=== PATIENT | male | born 1940 | race Caucasian/White ===

== ENCOUNTER 2019-08-11 09:41 | Emergency (ER) | payer MEDICARE, OTHER, BC ==
[~2019-08-11] VITALS: Ht 175.3 cm; Wt 91.0 kg
[~2019-08-11 09:41] MED LIST: CHOL2000 PO; EZET10TA21 PO; LISI-600 PO; PRAV40TA3 PO
[2019-08-11 10:47] LABS: CLARITY,URINE TURBID (Clear); COLOR,URINE STRAW (Yellow); GLUCOSE, URINE NEGATIVE (Neg); KETONES,URINE NEGATIVE (Neg); LEUKOCYTE ESTERASE ,URINE LARGE (Neg); NITRITES, URINE NEGATIVE (Neg); OCCULT BLOOD,URINE LARGE (Neg); PROTEIN,URINE 30 mg/dl (Neg); UROBILINOGEN,URINE 0.2 E.U/dL (0.2-1.0)
[2019-08-11 10:50] LABS: UA COLLECTION TYPE CLN CATCH MIDSTREAM
[2019-08-11 10:54] LABS: AMORPHOUS PHOSPHATES 2+; SQUAMOUS EPITHELIAL CELL,UR FEW /LPF (FEW); WBC CLUMPS,URINE FEW /HPF (NEGATIVE); WBC,URINE TNTC /HPF (0-4)
[2019-08-11 10:55] LABS: BACTERIA,URINE 4+ /HPF (Neg); MUCUS STRANDS FEW /LPF (Neg); RBC,URINE 20-50 /HPF (0-2)
[2019-08-11 10:57] LABS: TRANSITIONAL EPI CELLS,URINE FEW /HPF
[2019-08-11] MEDS ORDERED: DOXY100C43 PO (11:55)
[2019-08-11 12:43] VITALS: BP 129/67
[2019-08-11] MEDS ORDERED: GABA-532 PO (17:11)
[2019-08-11] MEDS ORDERED: GABA-534 PO (17:11)
[2019-08-11] MEDS ORDERED: UBID100C16 PO (17:11)
[2019-08-11] MEDS ORDERED: BUDE90AE PO (17:48)
[2019-08-11] MEDS ORDERED: LISI40TA4 PO (17:48)
== END 2019-08-11 12:51 | disposition home or self-care (01) ==
LOC: ER 09:42
DX: N39.0 Urinary tract infection, site not specified (principal); R33.9 Retention of urine, unspecified; Z79.899 Other long term (current) drug therapy
CPT/HCPCS: 81001; 87077; 87088; 87186; 99284

== ENCOUNTER 2019-08-11 14:37 | Inpatient (IN) | payer MEDICARE, BC ==
[~2019-08-11] VITALS: Ht 176.5 cm; Wt 88.6 kg
[~2019-08-11 14:37] MED LIST changes: +DOXY100C43 PO
[2019-08-11] MEDS ORDERED: morphine 4 MG/ML inj SYRINge IV ONE (14:55)
[2019-08-11] MEDS ORDERED: LIDOcaine 2% 10ml TOPICAL JELLY (Urojet) MM ONE ×2 (14:55→16:50)
--- NOTE | 2019-08-11 15:34 | NUR ---
Continuous bladder irrigation is happening at this time. Pt's urine noted to have a few small clots with the start of the placement of the three way cath and with the first few minutes of the irrigation but the clots are fewer at this time.
[2019-08-11 16:20] LABS: BASOPHILS % (AUTO) 0.4 % (0-1); EOSINOPHILS # (AUTO) 0.1 X10'3 (0-0.9); EOSINOPHILS % (AUTO) 0.5 % (0-6); HEMATOCRIT 42.1 % (42.0-52.0); HEMOGLOBIN 14.4 g/dl (14.0-17.9); LYMPHOCYTES # (AUTO) 1.1 X10'3 (1.1-4.8); LYMPHOCYTES % (AUTO) 9.1 % (21-51); MEAN CORPUSCULAR HGB CONC 34.2 g/dL (33.0-36.5); MEAN CORPUSCULAR VOLUME 90.6 FL (78-98); MEAN PLATELET VOLUME 8.5 FL (7.4-10.4); MONOCYTES # (AUTO) 0.7 X10'3 (0-0.9); MONOCYTES % (AUTO) 5.8 % (2-12); NEUTROPHILS # (AUTO) 9.9 X10'3 (1.8-7.7); NEUTROPHILS % (AUTO) 84.2 % (42-75); PLATELET COUNT 189 X10'3 (140-440); RED BLOOD COUNT 4.65 X10'6 (4.70-6.10); RED CELL DISTRIBUTION WIDTH 13.1 % (11.5-14.5); WHITE BLOOD COUNT 11.8 X10'3 (4.5-11.0)
[2019-08-11 16:28] LABS: ALANINE AMINOTRANSFERASE 26 U/L (12-78); ALBUMIN 3.9 G/DL (3.4-5.0); ALBUMIN/GLOBULIN RATIO 1.1 (1.1-1.5); ALKALINE PHOSPHATASE 69 IU/L (46-116); ANION GAP 7 (8-16); ASPARTATE AMINO TRANSFERASE 12 U/L (10-37); BILIRUBIN,TOTAL 0.8 MG/DL (0.1-1.0); BLOOD UREA NITROGEN 36 MG/DL (7-18); BUN/CREATININE RATIO 20.6 (5.4-32.0); CALCIUM 9.1 MG/DL (8.5-10.1); CHLORIDE 102 MMOL/L (99-107); CREATININE 1.75 MG/DL (0.60-1.10); GLUCOSE 117 MG/DL (70-104); POTASSIUM 4.3 MMOL/L (3.5-5.1); SODIUM 137 MMOL/L (135-145); TOTAL CARBON DIOXIDE 28.1 MMOL/L (24-32); TOTAL PROTEIN 7.4 G/DL (6.4-8.2); eGFR 38 ML/MIN
[2019-08-11] MEDS ORDERED: ondansetron/PF 4mg/2ml inj IV ONE (16:50)
[2019-08-11] MEDS ORDERED: morphine 4 MG/ML inj SYRINge IV PRN (16:50)
--- NOTE | 2019-08-11 16:57 | NUR ---
6000 ML NS INSTILLED INTO BLADDER FOR IRRIGATION TOTAL. 2L NS HUNG TO CONTINUE IRRIGATION. RED COLLECTION BAG EMPTIED OF 1600ML [place] RED FLUID WITH NOTED CLOTS. DR MONSIVAIS AT BED SIDE, NEW ORDERS RECEIVED
[2019-08-11] MEDS ORDERED: GABA-532 PO (17:11)
[2019-08-11] MEDS ORDERED: GABA-534 PO (17:11)
[2019-08-11] MEDS ORDERED: UBID100C16 PO (17:11)
[2019-08-11] MEDS ORDERED: ondansetron/PF 4mg/2ml inj IV PRN (17:45)
[2019-08-11] MEDS ORDERED: mag hydrox/Alum hydrox/simeth 30ml oral suspension PO PRN (17:45)
[2019-08-11] MEDS ORDERED: magnesium hydroxide 30ml (MOM) UD suspension PO PRN (17:45)
[2019-08-11] MEDS ORDERED: acetaminophen 325mg tablet PO PRN (17:45)
[2019-08-11] MEDS ORDERED: LISI40TA4 PO (17:48)
[2019-08-11] MEDS ORDERED: BUDE90AE PO (17:48)
[2019-08-11] MEDS: normal saline 1000ml 1,000 ML IV SCH (18:28)
[2019-08-11] MEDS: CefTRIAXone/D5W-Rocephin 1gm 50 ML IV SCH (18:32)
--- NOTE | 2019-08-11 18:41 | NUR ---
Pt reports pain is a steady 6/10 but instensifies in waves and increases higher. Pt has been medicated for pain, additional pain medication is pending.
[2019-08-11] MEDS ORDERED: CefTRIAXone 2gm/D5W 50ml 50 ML IV ONE (18:50)
--- NOTE | 2019-08-11 19:08 | NUR ---
Medicated as ordered with morphine 4mg IV. Pt reports the previous morphine dose did not help and he is "getting angry with sitting here in so much pain!" Explained the process of pain management and medication regimen to the patient.
--- NOTE | 2019-08-11 19:42 | NUR ---
Continuous bladder irrigation still running, some periods of light blood tinged return from the cath followed by some episodes of bright red blood and clots noted. Pt reports pain persists despite a second dose of morphine IV. Pt reported frustration over not being given a meal so far. blade worker is attempting to locate a box lunch for the patient at this time.
[2019-08-11] MEDS ORDERED: non-formulary drug (Ubidecarenone (Coq-10) 100 MG) PO SCH (20:00)
[2019-08-11] MEDS: budesonide 0.5mg/2ml UD nebule IH SCH (20:00)
[2019-08-11] MEDS ORDERED: gabapentin 400mg capsule PO SCH (20:00)
--- NOTE | 2019-08-11 20:17 | NUR ---
Received report from janitorial maintenance workerWALLACE Simmons. Patient to follow shortly.
--- NOTE | 2019-08-11 20:30 | NUR ---
Patient arrived to floor from the ER via gurney. Patient alert and oriented and managed to transfer himself over from gurney to bed. VS taken and f/c emptied and new bag of NS for irrigation hung.
[2019-08-11 20:45] VITALS: BP 134/75
[2019-08-11] MEDS: HYDROmorphone 1 mg/ml syringe IV PRN (21:46)
[2019-08-11] MEDS ORDERED: pravastatin 40mg tablet PO ONE (21:50)
[2019-08-11] MEDS ORDERED: ezetimibe 10mg tablet PO ONE (21:50)
[2019-08-11] MEDS ORDERED: lisinopril 20mg tablet PO ONE (21:50)
[2019-08-11] MEDS: gabapentin 300mg capsule PO SCH (22:09)
[2019-08-11 22:10] VITALS: BP 120/62
[2019-08-12] VITALS: BP 116/56
[2019-08-12] MEDS: temazepam 15mg capsule PO PRN ×2 (00:03→21:14)
[2019-08-12] MEDS: normal saline 1000ml 1,000 ML IV SCH ×4 (03:45→22:49)
[2019-08-12] MEDS: HYDROmorphone 1 mg/ml syringe IV PRN ×3 (04:17→20:56)
[2019-08-12 04:59] LABS: EOSINOPHILS # (AUTO) 0.2 X10'3 (0-0.9); HEMOGLOBIN 13.9 g/dl (14.0-17.9); MEAN CORPUSCULAR HGB CONC 34.2 g/dL (33.0-36.5)
[2019-08-12 05:02] LABS: BASOPHILS # (AUTO) 0.1 X10'3 (0-0.2); BASOPHILS % (AUTO) 0.4 % (0-1); EOSINOPHILS % (AUTO) 1.8 % (0-6); HEMATOCRIT 40.7 % (42.0-52.0); LYMPHOCYTES # (AUTO) 1.4 X10'3 (1.1-4.8); LYMPHOCYTES % (AUTO) 11.8 % (21-51); MEAN CORPUSCULAR HEMOGLOBIN 30.8 PG (27.0-31.0); MEAN CORPUSCULAR VOLUME 90.2 FL (78-98); MEAN PLATELET VOLUME 8.7 FL (7.4-10.4); MONOCYTES % (AUTO) 8.1 % (2-12); NEUTROPHILS # (AUTO) 9.3 X10'3 (1.8-7.7); NEUTROPHILS % (AUTO) 77.9 % (42-75); PLATELET COUNT 184 X10'3 (140-440); RED BLOOD COUNT 4.51 X10'6 (4.70-6.10); RED CELL DISTRIBUTION WIDTH 12.7 % (11.5-14.5); WHITE BLOOD COUNT 11.9 X10'3 (4.5-11.0)
[2019-08-12 05:04] LABS: ALBUMIN 3.1 G/DL (3.4-5.0); ANION GAP 4 (8-16); BLOOD UREA NITROGEN 33 MG/DL (7-18); BUN/CREATININE RATIO 24.4 (5.4-32.0); CALCIUM 8.6 MG/DL (8.5-10.1); CHLORIDE 103 MMOL/L (99-107); CREATININE 1.35 MG/DL (0.60-1.10); GLUCOSE 115 MG/DL (70-104); POTASSIUM 4.3 MMOL/L (3.5-5.1); SODIUM 135 MMOL/L (135-145); TOTAL CARBON DIOXIDE 27.7 MMOL/L (24-32); eGFR 51 ML/MIN
--- NOTE | 2019-08-12 06:02 | NUR ---
Total irrigation fluid since 2139 =18,000 cc. Total f/c output =16,750cc. UO =1250cc.
[2019-08-12 06:30] VITALS: BP 103/54
--- NOTE | 2019-08-12 06:30 | NUR ---
Patient in room [facility]. I have received report from WALLACE Ugalde and had the opportunity to ask questions and assume patient care.
--- NOTE | 2019-08-12 06:48 | NUR ---
Problems reprioritized. Patient report given, questions answered & plan of care reviewed with Kayli Rn.
[2019-08-12] MEDS ORDERED: pravastatin 40mg tablet PO SCH (08:00)
[2019-08-12] MEDS ORDERED: lisinopril 20mg tablet PO SCH (08:00)
[2019-08-12] MEDS: budesonide 0.5mg/2ml UD nebule IH SCH ×2 (08:00→20:00)
[2019-08-12] MEDS ORDERED: ezetimibe 10mg tablet PO SCH (08:00)
[2019-08-12] MEDS: gabapentin 400mg capsule PO SCH ×2 (08:41→12:14)
[2019-08-12] MEDS: CefTRIAXone/D5W-Rocephin 1gm 50 ML IV SCH (08:41)
[2019-08-12] MEDS: vitamin D (cholecalciferol) 1,000 unit tablet PO SCH (08:42)
--- NOTE | 2019-08-12 09:12 | NUR ---
Patient refused SVN tx @ this time. No Shortness of breath noted. PT STATES HE RARELY USES AT HOME MED NOT AVAILABLE IN [facility]ER [facility] Addendum: 08/12/19 at 0914 by Shelley Rivas RT Amended: Links added.
[2019-08-12 11:00] VITALS: BP 102/66
[2019-08-12] MEDS: oxybutynin 5mg tablet PO SCH ×2 (12:14→20:56)
--- NOTE | 2019-08-12 18:10 | NUR ---
Problems reprioritized. Patient report given, questions answered & plan of care reviewed with Aracelis Hsu RN.
--- NOTE | 2019-08-12 18:30 | NUR ---
Patient in room [facility]. I have received report from KALIN GONSALEZ and had the opportunity to ask questions and assume patient care.
--- NOTE | 2019-08-12 19:25 | NUR ---
Patient report given, questions answered & plan of care reviewed with LORENZO GONSALEZ.
[2019-08-12 19:32] VITALS: BP 136/65
--- NOTE | 2019-08-12 19:37 | NUR ---
Patient in room [facility]. I have received report from Aracelis Hsu RN and had the opportunity to ask questions and assume patient care.
[2019-08-12] MEDS: lactobacillus rhamnosus 10,000 MMU CELLS/CAPSULE PO SCH (20:56)
[2019-08-12] MEDS: gabapentin 300mg capsule PO SCH (20:56)
[2019-08-13] VITALS: BP 142/66
[2019-08-13 05:01] LABS: BASOPHILS % (AUTO) 0.5 % (0-1); EOSINOPHILS # (AUTO) 0.5 X10'3 (0-0.9); HEMATOCRIT 40.2 % (42.0-52.0); HEMOGLOBIN 14.1 g/dl (14.0-17.9); LYMPHOCYTES # (AUTO) 1.2 X10'3 (1.1-4.8); MEAN CORPUSCULAR HEMOGLOBIN 31.2 PG (27.0-31.0); MEAN CORPUSCULAR HGB CONC 35.1 g/dL (33.0-36.5); MEAN CORPUSCULAR VOLUME 88.9 FL (78-98); MEAN PLATELET VOLUME 8.3 FL (7.4-10.4); MONOCYTES # (AUTO) 0.9 X10'3 (0-0.9); MONOCYTES % (AUTO) 8.9 % (2-12); NEUTROPHILS # (AUTO) 7.6 X10'3 (1.8-7.7); NEUTROPHILS % (AUTO) 73.6 % (42-75); PLATELET COUNT 180 X10'3 (140-440); RED BLOOD COUNT 4.52 X10'6 (4.70-6.10); WHITE BLOOD COUNT 10.3 X10'3 (4.5-11.0)
[2019-08-13 05:08] LABS: ANION GAP 6 (8-16); BLOOD UREA NITROGEN 21 MG/DL (7-18); BUN/CREATININE RATIO 17.9 (5.4-32.0); CALCIUM 8.5 MG/DL (8.5-10.1); CHLORIDE 103 MMOL/L (99-107); CREATININE 1.17 MG/DL (0.60-1.10); GLUCOSE 117 MG/DL (70-104); POTASSIUM 4.3 MMOL/L (3.5-5.1); SODIUM 136 MMOL/L (135-145); TOTAL CARBON DIOXIDE 27.3 MMOL/L (24-32); eGFR 60 ML/MIN
--- NOTE | 2019-08-13 06:30 | NUR ---
Problems reprioritized. Patient report given, questions answered & plan of care reviewed with Mala GONSALEZ.
--- NOTE | 2019-08-13 06:47 | NUR ---
Patient in room [facility]. I have received report from WALLACE Ugalde and had the opportunity to ask questions and assume patient care.
[2019-08-13 07:00] VITALS: BP 139/70
[2019-08-13] MEDS: oxybutynin 5mg tablet PO SCH ×3 (08:46→20:44)
[2019-08-13] MEDS: CefTRIAXone/D5W-Rocephin 1gm 50 ML IV SCH (08:46)
[2019-08-13] MEDS: vitamin D (cholecalciferol) 1,000 unit tablet PO SCH (08:46)
[2019-08-13] MEDS: lactobacillus rhamnosus 10,000 MMU CELLS/CAPSULE PO SCH ×2 (08:46→20:45)
[2019-08-13] MEDS: gabapentin 400mg capsule PO SCH ×2 (08:46→11:13)
--- NOTE | 2019-08-13 09:06 | NUR ---
Patient refusing to take pravastatin, ezetimibe, and lisinopril during the AM because at home he takes them at night. Pharmacy asked to retime these.
--- NOTE | 2019-08-13 10:24 | NUR ---
patient refused svn tx Addendum: 08/13/19 at 1025 by Anabella Prsesley RT Amended: Links added.
[2019-08-13] MEDS: budesonide 0.5mg/2ml UD nebule IH SCH ×2 (10:25→19:22)
[2019-08-13 11:00] VITALS: BP 131/68
--- NOTE | 2019-08-13 11:32 | NUR ---
Patient to CT via wheelchair and x1 RN. Resource RN went with patient to monitor CBI.
[2019-08-13] MEDS: normal saline 1000ml 1,000 ML IV SCH (13:27)
--- NOTE | 2019-08-13 16:30 | NUR ---
Patient in room [facility]. I have received report from MAUREEN GONSALEZ and had the opportunity to ask questions and assume patient care. Addendum: 08/14/19 at 0359 by Clara Souza RN WRONG TIME.
--- NOTE | 2019-08-13 18:23 | NUR ---
Problems reprioritized. Patient report given, questions answered & plan of care reviewed with Aracelis Hsu RN.
--- NOTE | 2019-08-13 18:30 | NUR ---
Patient in room [facility]. I have received report from MAUREEN GONSALEZ and had the opportunity to ask questions and assume patient care.
[2019-08-13 20:00] VITALS: BP 109/73
[2019-08-13] MEDS: gabapentin 300mg capsule PO SCH (20:42)
[2019-08-13] MEDS: temazepam 15mg capsule PO PRN (20:42)
[2019-08-13] MEDS: pravastatin 40mg tablet PO SCH (20:42)
[2019-08-13] MEDS: ezetimibe 10mg tablet PO SCH (20:45)
[2019-08-13] MEDS: HYDROmorphone 1 mg/ml syringe IV PRN (20:46)
[2019-08-13] MEDS ORDERED: lisinopril 20mg tablet PO SCH (21:00)
[2019-08-14] VITALS: BP 110/70
[2019-08-14] MEDS: normal saline 1000ml 1,000 ML IV SCH ×2 (00:39→10:17)
[2019-08-14 05:15] LABS: BASOPHILS % (AUTO) 0.2 % (0-1); EOSINOPHILS # (AUTO) 0.1 X10'3 (0-0.9); EOSINOPHILS % (AUTO) 1.1 % (0-6); HEMATOCRIT 43.7 % (42.0-52.0); HEMOGLOBIN 15.1 g/dl (14.0-17.9); LYMPHOCYTES # (AUTO) 1.1 X10'3 (1.1-4.8); LYMPHOCYTES % (AUTO) 10.4 % (21-51); MEAN CORPUSCULAR HEMOGLOBIN 30.8 PG (27.0-31.0); MEAN CORPUSCULAR HGB CONC 34.7 g/dL (33.0-36.5); MEAN PLATELET VOLUME 8.7 FL (7.4-10.4); MONOCYTES # (AUTO) 0.8 X10'3 (0-0.9); MONOCYTES % (AUTO) 7.9 % (2-12); NEUTROPHILS # (AUTO) 8.2 X10'3 (1.8-7.7); NEUTROPHILS % (AUTO) 80.4 % (42-75); PLATELET COUNT 213 X10'3 (140-440); RED CELL DISTRIBUTION WIDTH 12.7 % (11.5-14.5); WHITE BLOOD COUNT 10.2 X10'3 (4.5-11.0)
[2019-08-14 05:30] LABS: ALBUMIN 2.8 G/DL (3.4-5.0); ANION GAP 8 (8-16); BLOOD UREA NITROGEN 19 MG/DL (7-18); BUN/CREATININE RATIO 16.4 (5.4-32.0); CALCIUM 8.4 MG/DL (8.5-10.1); CHLORIDE 102 MMOL/L (99-107); CREATININE 1.16 MG/DL (0.60-1.10); GLUCOSE 121 MG/DL (70-104); POTASSIUM 4.1 MMOL/L (3.5-5.1); SODIUM 134 MMOL/L (135-145); eGFR 61 ML/MIN
--- NOTE | 2019-08-14 06:31 | NUR ---
Problems reprioritized. Patient report given, questions answered & plan of care reviewed with MAUREEN GONSALEZ.
--- NOTE | 2019-08-14 06:34 | NUR ---
Patient in room [facility]. I have received report from Aracelis Hsu RN and had the opportunity to ask questions and assume patient care.
[2019-08-14 07:00] VITALS: BP 100/55
[2019-08-14] MEDS: budesonide 0.5mg/2ml UD nebule IH SCH ×2 (07:18→19:42)
--- NOTE | 2019-08-14 07:19 | NUR ---
PT HAS BEEN REFUSING BUDESONIDE, NEEDS EDUCATION. MED IS NOT AVAILABLE IN [facility]WAY Addendum: 08/14/19 at 0721 by Shelley Rivas RT Amended: Links added.
--- NOTE | 2019-08-14 07:21 | NUR ---
CALLED SULMA GONSALEZ ON THE SURGICAL FLOOR. ASKED HIM TO HAVE THE DRBrendan TAKE A LOOK AT THE URINE CULTURE AND SENSITIVITY TO MAKE SURE HE IS ON THE RIGHT ANTIBIOTIC
[2019-08-14] MEDS: lactobacillus rhamnosus 10,000 MMU CELLS/CAPSULE PO SCH ×2 (07:47→20:31)
[2019-08-14] MEDS: oxybutynin 5mg tablet PO SCH ×3 (07:47→20:31)
[2019-08-14] MEDS: CefTRIAXone/D5W-Rocephin 1gm 50 ML IV SCH (07:47)
[2019-08-14] MEDS: vitamin D (cholecalciferol) 1,000 unit tablet PO SCH (07:47)
[2019-08-14] MEDS: gabapentin 400mg capsule PO SCH ×2 (07:47→12:32)
--- NOTE | 2019-08-14 08:30 | NUR ---
Upon assessment of this patient he was found to have hives on posterior bilateral lower extremities. Rocephin was immediately stopped and was notified. Received Benadryl order for patient. Will continue to monitor patient.
[2019-08-14] MEDS: diphenhydrAMINE 50 mg/ml inj IV PRN ×2 (10:50→19:24)
[2019-08-14 11:00] VITALS: BP_SYST 93; BP_SYST 94; BP_DIAS 41; BP_DIAS 50; BP_DIAS 52
[2019-08-14 12:24] VITALS: BP 104/54
[2019-08-14 18:00] VITALS: BP 112/55
--- NOTE | 2019-08-14 18:32 | NUR ---
Problems reprioritized. Patient report given, questions answered & plan of care reviewed with WALLACE Singh.
[2019-08-14] MEDS: gabapentin 300mg capsule PO SCH (20:31)
[2019-08-14] MEDS: ezetimibe 10mg tablet PO SCH (20:31)
[2019-08-14] MEDS: pravastatin 40mg tablet PO SCH (20:32)
[2019-08-15] VITALS: BP 98/47
[2019-08-15] MEDS: normal saline 1000ml 1,000 ML IV SCH ×2 (01:45→08:28)
[2019-08-15 05:26] LABS: BASOPHILS % (AUTO) 0.1 % (0-1); EOSINOPHILS # (AUTO) 0.1 X10'3 (0-0.9); EOSINOPHILS % (AUTO) 1.5 % (0-6); HEMATOCRIT 39.8 % (42.0-52.0); HEMOGLOBIN 13.8 g/dl (14.0-17.9); MEAN CORPUSCULAR HEMOGLOBIN 30.6 PG (27.0-31.0); MEAN CORPUSCULAR HGB CONC 34.6 g/dL (33.0-36.5); MEAN CORPUSCULAR VOLUME 88.5 FL (78-98); MEAN PLATELET VOLUME 8.6 FL (7.4-10.4); MONOCYTES # (AUTO) 0.4 X10'3 (0-0.9); MONOCYTES % (AUTO) 6.2 % (2-12); NEUTROPHILS # (AUTO) 5.6 X10'3 (1.8-7.7); NEUTROPHILS % (AUTO) 78.2 % (42-75); PLATELET COUNT 179 X10'3 (140-440); RED CELL DISTRIBUTION WIDTH 12.8 % (11.5-14.5); WHITE BLOOD COUNT 7.2 X10'3 (4.5-11.0)
[2019-08-15 05:36] LABS: ALBUMIN 2.5 G/DL (3.4-5.0); ANION GAP 7 (8-16); BLOOD UREA NITROGEN 29 MG/DL (7-18); BUN/CREATININE RATIO 20.1 (5.4-32.0); CALCIUM 7.7 MG/DL (8.5-10.1); CHLORIDE 102 MMOL/L (99-107); CREATININE 1.44 MG/DL (0.60-1.10); GLUCOSE 109 MG/DL (70-104); POTASSIUM 4.2 MMOL/L (3.5-5.1); SODIUM 133 MMOL/L (135-145); TOTAL CARBON DIOXIDE 24.2 MMOL/L (24-32); eGFR 48 ML/MIN
--- NOTE | 2019-08-15 06:38 | NUR ---
Report given to WALLACE Perales
--- NOTE | 2019-08-15 06:38 | NUR ---
Patient in room [facility]. I have received report from Francisco GONSALEZ and had the opportunity to ask questions and assume patient care.
[2019-08-15] MEDS: budesonide 0.5mg/2ml UD nebule IH SCH (08:00)
--- NOTE | 2019-08-15 08:17 | NUR ---
budesonide not available Addendum: 08/15/19 at 0817 by Shelley Rivas RT Amended: Links added.
[2019-08-15] MEDS: lactobacillus rhamnosus 10,000 MMU CELLS/CAPSULE PO SCH (08:19)
[2019-08-15] MEDS: vitamin D (cholecalciferol) 1,000 unit tablet PO SCH (08:19)
[2019-08-15] MEDS: gabapentin 400mg capsule PO SCH (08:19)
[2019-08-15] MEDS: oxybutynin 5mg tablet PO SCH (08:20)
[2019-08-15] MEDS: diphenhydrAMINE 50 mg/ml inj IV PRN (08:25)
[2019-08-15 09:07] VITALS: BP 105/50
[2019-08-15] MEDS ORDERED: OXYB5TAB16 PO (10:27)
--- NOTE | 2019-08-15 12:18 | NUR ---
Patient D/C'd home per Dr Crawford. Patient alert and oriented x3. on stable conditions. Discharge and medication instructions given to pat. Pt left hospital with Lee cath in place. leg bag and education provided. 1000 ml of clear pink urine collected at discharge. Patient left hospital accompanied by via private vehicle.
== END 2019-08-15 12:12 | disposition home or self-care (01) | DRG 698 ==
LOC: ER 14:38 → ED HOLD 18:13 → EDBEDREQ 20:09 → SUR 3N 20:30
PROVIDERS: ADMIT Family Medicine; ATTEND Family Medicine
DX: T83.83XA Hemorrhage due to genitourinary prosthetic devices, implants and grafts, initial encounter (principal); N17.0 Acute kidney failure with tubular necrosis; N39.0 Urinary tract infection, site not specified; E78.00 Pure hypercholesterolemia, unspecified; E78.5 Hyperlipidemia, unspecified; I10 Essential (primary) hypertension; Y83.8 Other surgical procedures as the cause of abnormal reaction of the patient, or of later complication, without mention of misadventure at the time of the procedure; N32.89 Other specified disorders of bladder; N40.1 Benign prostatic hyperplasia with lower urinary tract symptoms; N13.9 Obstructive and reflux uropathy, unspecified; R33.8 Other retention of urine; Z95.0 Presence of cardiac pacemaker; Y92.89 Other specified places as the place of occurrence of the external cause
CPT/HCPCS: 36415; 74176; 80048; 80053; 85025; 87081; 94760; 96374; 96375; 99285; G0378; J0696; J1170; J1200; J2270; J2405; J7030; J7626

== ENCOUNTER 2020-08-23 14:21 | Emergency (ER) | payer MEDICARE, OTHER ==
[~2020-08-23] VITALS: Ht 175.3 cm; Wt 88.6 kg
[~2020-08-23 14:21] MED LIST changes: +BUDE90AE PO; -DOXY100C43 PO; -EZET10TA21 PO; +EZET10TA6 PO; +GABA-532 PO; +GABA-534 PO; +LIDOcaine 1% W/epiNEPHrine 1:100,000 20ml vial ONE; -LISI-600 PO; +LISI40TA4 PO; +OXYB5TAB16 PO; +UBID100C16 PO
[2020-08-23 15:09] VITALS: BP 128/72
[2020-08-23] MEDS ORDERED: CEPH-572 PO (16:49)
[2020-08-23] MEDS ORDERED: HYDR-3965 PO (16:49)
[2020-08-26] MEDS ORDERED: CHOL20004 PO (09:58)
== END 2020-08-23 17:33 | disposition home or self-care (01) ==
LOC: ER 14:21
DX: S62.637B Displaced fracture of distal phalanx of left little finger, initial encounter for open fracture (principal); Z88.1 Allergy status to other antibiotic agents; Z79.899 Other long term (current) drug therapy; V27.4XXA Motorcycle driver injured in collision with fixed or stationary object in traffic accident, initial encounter; Y93.55 Activity, bike riding; Y92.828 Other wilderness area as the place of occurrence of the external cause; Y99.8 Other external cause status
CPT/HCPCS: 12002; 29130; 73140; 99283

== ENCOUNTER 2020-09-01 13:33 | Day surgery (SDC) | payer MEDICARE, OTHER ==
[2020-08-26 10:19] LABS: CLARITY,URINE CLEAR (Clear); COLOR,URINE YELLOW (Yellow); GLUCOSE, URINE NEGATIVE (Neg); KETONES,URINE NEGATIVE (Neg); LEUKOCYTE ESTERASE ,URINE TRACE (Neg); NITRITES, URINE NEGATIVE (Neg); OCCULT BLOOD,URINE NEGATIVE (Neg); PROTEIN,URINE NEGATIVE (Neg); UROBILINOGEN,URINE 0.2 E.U/dL (0.2-1.0)
[2020-08-26 10:20] LABS: BASOPHILS # (AUTO) 0.1 X10'3 (0-0.2); BASOPHILS % (AUTO) 0.8 % (0-1); EOSINOPHILS # (AUTO) 0.4 X10'3 (0-0.9); EOSINOPHILS % (AUTO) 5.5 % (0-6); LYMPHOCYTES # (AUTO) 1.4 X10'3 (1.1-4.8); LYMPHOCYTES % (AUTO) 21.9 % (21-51); MEAN CORPUSCULAR HEMOGLOBIN 30.3 PG (27.0-31.0); MEAN CORPUSCULAR HGB CONC 33.4 g/dL (33.0-36.5); MEAN CORPUSCULAR VOLUME 90.7 FL (78-98); MEAN PLATELET VOLUME 8.1 FL (7.4-10.4); MONOCYTES # (AUTO) 0.5 X10'3 (0-0.9); MONOCYTES % (AUTO) 7.1 % (2-12); NEUTROPHILS # (AUTO) 4.3 X10'3 (1.8-7.7); NEUTROPHILS % (AUTO) 64.7 % (42-75); PRE OP HEMATOCRIT 45.2 % (42.0-52.0); PRE OP HEMOGLOBIN 15.1 g/dL (14.0-17.9); PRE OP PLATELET COUNT 223 X10'3 (140-440); RED BLOOD COUNT 4.98 X10'6 (4.70-6.10)
[2020-08-26 10:37] LABS: ALBUMIN 4.1 G/DL (3.4-5.0); ALBUMIN/GLOBULIN RATIO 1.1 (1.1-1.5); ALKALINE PHOSPHATASE 81 IU/L (46-116); BLOOD UREA NITROGEN 28 MG/DL (7-18); BUN/CREATININE RATIO 25.7 (5.4-32.0); CALCIUM 9.2 MG/DL (8.5-10.1); CHLORIDE 104 MMOL/L (99-107); CREATININE 1.09 MG/DL (0.60-1.10); PRE OP ALT 34 U/L (30-65); PRE OP ANION GAP 6 (8-16); PRE OP AST 26 U/L (10-37); PRE OP BILIRUB, TOTAL 0.5 MG/DL (0.0-1.0); PRE OP GLUCOSE 115 MG/DL (70-104); PRE OP POTASSIUM 5.4 MMOL/L (3.4-5.1); PRE OP SODIUM 141 MMOL/L (135-145); TOTAL CARBON DIOXIDE 30.9 MMOL/L (24-32); TOTAL PROTEIN 7.9 G/DL (6.4-8.2); eGFR 65 ML/MIN
[2020-08-26 10:40] LABS: UA COLLECTION TYPE NON-SPECIFIED
[2020-08-26 10:43] LABS: BACTERIA,URINE NONE SEEN /HPF (Neg); MUCUS STRANDS FEW /LPF (Neg); RBC,URINE 0-2 /HPF (0-2); SQUAMOUS EPITHELIAL CELL,UR FEW /LPF (FEW); WBC,URINE 0-4 /HPF (0-4)
[~2020-09-01] VITALS: Ht 175.3 cm; Wt 88.5 kg
[~2020-09-01 13:33] MED LIST changes: -BUDE90AE PO; +BUPIVAcaine/PF 2.5 mg/ml (0.25%) 30ml vial ONE; -CHOL2000 PO; +CHOL20004 PO; -GABA-534 PO; -LIDOcaine 1% W/epiNEPHrine 1:100,000 20ml vial ONE; -OXYB5TAB16 PO; +clindamycin-Cleocin 900mg/D5W 50 ML IV ONE; +famotidine 20mg tablet PO ONE; +ringers solution, lacted 1,000 ML IV SCH
[2020-09-01 13:40] VITALS: BP 158/86
[2020-09-01] MEDS ORDERED: acetaminophen 1,000mg/100ml IV 100 ML IV PRN (14:05)
[2020-09-01] MEDS ORDERED: morphine 2 MG/ML inj. syringe IV PRN (14:05)
[2020-09-01] MEDS ORDERED: morphine 4 MG/ML inj SYRINge IV PRN (14:05)
[2020-09-01] MEDS ORDERED: ringers solution, lacted 1,000 ML IV SCH (14:05)
[2020-09-01] MEDS ORDERED: meperidine/PF 25mg/ml syringe IV PRN ×3 (14:05)
[2020-09-01] MEDS ORDERED: ondansetron/PF 4mg/2ml inj IV PRN (14:05)
[2020-09-01] MEDS ORDERED: proCHLORperazine 10 MG/2 ml inj IV PRN (14:05)
[2020-09-01] MEDS ORDERED: hydrALAZINE 20mg/ml inj. IV PRN (14:05)
[2020-09-01] MEDS ORDERED: labetalol 20mg/4ml (5mg/ml) syringe IV PRN (14:05)
--- NOTE | 2020-09-01 19:30 | NUR ---
PATIENT WAITING FOR SURGERY. UPON COMPLETION OF SURGERY WALLACE SILVEIRA DISCUSSED CASE WITH PATIENT AND PATIENT DID NOT WISH TO PROCEED. STATING THAT HE "WAS HUNGRY AND THE DOCTOR IS PROBABLY TIRED. LET'S JUST DO THIS NEXT WEEK". MD CASTANEDA BROUGHT OVER AND DISCUSSED THIS WITH PATIENT AND BOTH AGREED THAT NEXT WEEK IS FINE TO DO THE CASE. IV REMOVED AND PATIENT TAKEN TO [address] WHERE PATIENTS DROVE HIM HOME. Addendum: 09/02/20 at 0755 by Wade Strange - WALLACE GONSALEZ Amended: Links added.
== END 2020-09-01 20:38 | disposition home or self-care (01) ==
LOC: PAS 13:33
PROVIDERS: ATTEND Surgery
DX: K40.90 Unilateral inguinal hernia, without obstruction or gangrene, not specified as recurrent (principal); Z53.8 Procedure and treatment not carried out for other reasons; Z20.828 Contact with and (suspected) exposure to other viral communicable diseases; I10 Essential (primary) hypertension; J45.909 Unspecified asthma, uncomplicated; Z95.0 Presence of cardiac pacemaker; Z98.890 Other specified postprocedural states; Z79.01 Long term (current) use of anticoagulants; Z79.899 Other long term (current) drug therapy; F17.290 Nicotine dependence, other tobacco product, uncomplicated; F12.90 Cannabis use, unspecified, uncomplicated; Z87.01 Personal history of pneumonia (recurrent); Z80.0 Family history of malignant neoplasm of digestive organs
CPT/HCPCS: 36415; 80053; 81001; 82948; 85025; 87088; 87635; 93005; J3490; J7120

== ENCOUNTER 2020-09-06 05:19 | Day surgery (SDC) | payer MEDICARE, OTHER ==
[~2020-09-06] VITALS: Ht 175.3 cm; Wt 88.5 kg
[2020-09-06] VITALS (9 sets, daily range): BP systolic 138–158; BP diastolic 72–90
[~2020-09-06 05:19] MED LIST changes: -BUPIVAcaine/PF 2.5 mg/ml (0.25%) 30ml vial ONE; -clindamycin-Cleocin 900mg/D5W 50 ML IV ONE; -famotidine 20mg tablet PO ONE
[2020-09-06] MEDS ORDERED: ceFAZolin 2gm in dextrose, iso 50 ML IV ONE (05:30)
[2020-09-06] MEDS ORDERED: famotidine 20mg tablet PO ONE (05:30)
[2020-09-06] MEDS ORDERED: LIDOcaine 1% (10mg/ml) 2ml vial ONE (05:51)
[2020-09-06] MEDS ORDERED: CLINDAmcin 900mg/NS 50ml IVPB 50 ML IV ONE (06:00)
[2020-09-06] MEDS ORDERED: BUPIVAcaine/PF 2.5 mg/ml (0.25%) 30ml vial ONE (07:01)
[2020-09-06] MEDS ORDERED: ringers solution, lacted 1,000 ML IV SCH (07:35)
[2020-09-06] MEDS ORDERED: morphine 2 MG/ML inj. syringe IV PRN (07:35)
[2020-09-06] MEDS ORDERED: ondansetron/PF 4mg/2ml inj IV PRN (07:35)
[2020-09-06] MEDS ORDERED: proCHLORperazine 10 MG/2 ml inj IV PRN (07:35)
[2020-09-06] MEDS ORDERED: morphine 4 MG/ML inj SYRINge IV PRN (07:35)
[2020-09-06] MEDS ORDERED: meperidine/PF 25mg/ml syringe IV PRN ×3 (07:35)
[2020-09-06] MEDS ORDERED: fentaNYL/PF 50MCG/1 ML 2ML syringe ONE ×2 (07:42→08:35)
[2020-09-06] MEDS ORDERED: propofol inj 20 ML IV ONE (07:43)
[2020-09-06] MEDS ORDERED: midazolam 2 mg/2 ml injection ONE (07:43)
[2020-09-06] MEDS ORDERED: rocuronium 10mg/ml inj IV ONE (07:43)
[2020-09-06] MEDS ORDERED: sevoflurane 250ml liquid IH ONE (08:04)
[2020-09-06] MEDS ORDERED: ondansetron/PF 4mg/2ml inj ONE (09:44)
[2020-09-06] MEDS ORDERED: dexamethasone sod phosphate 4mg/ml inj. ONE (09:45)
[2020-09-06] MEDS ORDERED: neostigmine methylsulfate 1 MG/ML 10ml vial ONE (09:46)
[2020-09-06] MEDS ORDERED: glycopyrrolate 0.2mg/ml inj ONE (09:48)
--- NOTE | 2020-09-06 10:01 | NUR ---
ARRIVED IN PACU VIA GURNEY FROM OR WITH DR MCDOWELL IN ATTENDANCE. REPORT RECEIVED. COLOR GOOD. NO PAIN. FO;EY IN PLACE WITH QS PINK URINE
[2020-09-06] MEDS ORDERED: HYDROcodone/acetaminophen 10/325mg tab PO ONE (10:35)
--- NOTE | 2020-09-06 11:00 | NUR ---
MORE COMFORTABLE. VS STABLE
--- NOTE | 2020-09-06 11:40 | NUR ---
RED CONVERTED TO LEG BAG. URINE CONTINUES PINK. NO FURTHER BLEEDING NOTED AROUND URETERAL MEATUS. REVIEWED DISCHARGE WITH PT AND KIMMIE, INCLUDING CATHETER CARE INSTRUCTIONS. PAIN CONTROLLED.
--- NOTE | 2020-09-06 11:50 | NUR ---
TO CAR VIA W/C, ASSISTED BY NURSE, WITHOUT INCIDENT
== END 2020-09-06 11:50 | disposition home or self-care (01) ==
LOC: PAS 05:19
PROVIDERS: ATTEND Surgery
DX: K40.90 Unilateral inguinal hernia, without obstruction or gangrene, not specified as recurrent (principal); F12.90 Cannabis use, unspecified, uncomplicated; Z72.89 Other problems related to lifestyle; Z79.899 Other long term (current) drug therapy; J45.909 Unspecified asthma, uncomplicated; I10 Essential (primary) hypertension; Z87.01 Personal history of pneumonia (recurrent); Z95.0 Presence of cardiac pacemaker; Z88.1 Allergy status to other antibiotic agents; Z80.0 Family history of malignant neoplasm of digestive organs
CPT/HCPCS: 49650; 82948; C1758; C1781; J1100; J2001; J2175; J2250; J2405; J2704; J2710; J3010; J3490; J7120; A4215; A4618

== ENCOUNTER 2021-01-18 12:55 | Emergency (ER) | payer MEDICARE, OTHER ==
[~2021-01-18] VITALS: Ht 175.3 cm; Wt 88.6 kg
[~2021-01-18 12:55] MED LIST changes: +LISI40TA13 PO; -LISI40TA4 PO; -ringers solution, lacted 1,000 ML IV SCH
[2021-01-18 13:05] VITALS: BP 140/70
[2021-01-18] MEDS ORDERED: orphenadrine citrate 60mg/2ml inj. IM ONE (14:15)
[2021-01-18] MEDS ORDERED: ketorolac tromethamine 15mg/ml inj. IM ONE (14:15)
[2021-01-18] MEDS ORDERED: METH-798 PO (14:18)
== END 2021-01-18 14:39 | disposition home or self-care (01) ==
LOC: ER 12:55
DX: S43.102A Unspecified dislocation of left acromioclavicular joint, initial encounter (principal); I10 Essential (primary) hypertension; J45.909 Unspecified asthma, uncomplicated; N40.0 Benign prostatic hyperplasia without lower urinary tract symptoms; Z87.81 Personal history of (healed) traumatic fracture; Z88.8 Allergy status to other drugs, medicaments and biological substances; Z79.899 Other long term (current) drug therapy; V19.60XA Unspecified pedal cyclist injured in collision with unspecified motor vehicles in traffic accident, initial encounter; Y93.89 Activity, other specified; Y92.89 Other specified places as the place of occurrence of the external cause; Y99.8 Other external cause status
CPT/HCPCS: 73010; 73030; 96372; 99284; J1885; J2360

== ENCOUNTER 2021-01-22 07:46 | Emergency (ER) | payer MEDICARE, OTHER ==
[~2021-01-22] VITALS: Ht 175.3 cm; Wt 91.0 kg
[~2021-01-22 07:46] MED LIST changes: +METH-798 PO
[2021-01-22 07:50] VITALS: BP 145/69
[2021-01-22] MEDS ORDERED: ONDA4TAB6 PO (09:17)
[2021-01-22] MEDS ORDERED: HYDR-3964 PO (09:17)
== END 2021-01-22 09:51 | disposition home or self-care (01) ==
LOC: ER 07:47
DX: S42.122A Displaced fracture of acromial process, left shoulder, initial encounter for closed fracture (principal); S22.42XA Multiple fractures of ribs, left side, initial encounter for closed fracture; S43.102D Unspecified dislocation of left acromioclavicular joint, subsequent encounter; I10 Essential (primary) hypertension; J45.909 Unspecified asthma, uncomplicated; N40.0 Benign prostatic hyperplasia without lower urinary tract symptoms; Z87.81 Personal history of (healed) traumatic fracture; Z98.890 Other specified postprocedural states; Z95.5 Presence of coronary angioplasty implant and graft; Z88.1 Allergy status to other antibiotic agents; Z79.899 Other long term (current) drug therapy; V00.831A Fall from motorized mobility scooter, initial encounter; Y93.55 Activity, bike riding; Y92.828 Other wilderness area as the place of occurrence of the external cause; Y99.8 Other external cause status
CPT/HCPCS: 71250; 99284

== ENCOUNTER 2022-02-13 06:09 | Emergency (ER) | payer MEDICARE, OTHER ==
[~2022-02-13] VITALS: Ht 177.8 cm; Wt 90.9 kg
[~2022-02-13 06:09] MED LIST changes: +ONDA4TAB6 PO
[2022-02-13] MEDS ORDERED: BEBTELOVIMAB 175 MG/2 ML VIAL IV ONE (08:05)
[2022-02-13 09:49] VITALS: BP 133/61
== END 2022-02-13 09:56 | disposition home or self-care (01) ==
LOC: ER 06:10
DX: U07.1 COVID-19 (principal); R05.9 Cough, unspecified; I10 Essential (primary) hypertension; E78.00 Pure hypercholesterolemia, unspecified; J45.909 Unspecified asthma, uncomplicated; N40.0 Benign prostatic hyperplasia without lower urinary tract symptoms; Z95.0 Presence of cardiac pacemaker; Z72.89 Other problems related to lifestyle; Z87.81 Personal history of (healed) traumatic fracture; Z88.8 Allergy status to other drugs, medicaments and biological substances; Z79.899 Other long term (current) drug therapy
CPT/HCPCS: 87502; 87503; 87635; 99283; C9803; M0222; Q0222

== ENCOUNTER 2022-05-21 13:36 | Emergency (ER) | payer MEDICARE, OTHER ==
[~2022-05-21] VITALS: Ht 175.3 cm; Wt 90.9 kg
[2022-05-21 13:51] VITALS: BP 138/76
[2022-05-21] MEDS ORDERED: ketorolac trometh. 30mg/ml inj. IM ONE (15:40)
[2022-05-21] MEDS ORDERED: iohexol 300mg/ml 100ml inj. ONE (17:04)
[2022-05-21 17:26] LABS: BASOPHILS # (AUTO) 0.1 X10'3 (0-0.2); BASOPHILS % (AUTO) 0.9 % (0-1); EOSINOPHILS # (AUTO) 0.2 X10'3 (0-0.9); HEMATOCRIT 44.2 % (42.0-52.0); HEMOGLOBIN 14.9 g/dl (14.0-17.9); LYMPHOCYTES # (AUTO) 1.9 X10'3 (1.1-4.8); LYMPHOCYTES % (AUTO) 22.3 % (21-51); MEAN CORPUSCULAR HEMOGLOBIN 30.1 PG (27.0-31.0); MEAN CORPUSCULAR HGB CONC 33.7 g/dL (33.0-36.5); MEAN CORPUSCULAR VOLUME 89.5 FL (78-98); MEAN PLATELET VOLUME 8.8 FL (7.4-10.4); MONOCYTES # (AUTO) 0.7 X10'3 (0-0.9); MONOCYTES % (AUTO) 8.7 % (2-12); NEUTROPHILS # (AUTO) 5.5 X10'3 (1.8-7.7); NEUTROPHILS % (AUTO) 65.1 % (42-75); PLATELET COUNT 204 X10'3 (140-440); RED BLOOD COUNT 4.94 X10'6 (4.70-6.10); RED CELL DISTRIBUTION WIDTH 13.2 % (11.5-14.5); WHITE BLOOD COUNT 8.4 X10'3 (4.5-11.0)
[2022-05-21 17:38] LABS: ALANINE AMINOTRANSFERASE 30 U/L (12-78); ALBUMIN/GLOBULIN RATIO 1.2 (1.1-1.5); ALKALINE PHOSPHATASE 80 IU/L (46-116); ANION GAP 12 (8-16); ASPARTATE AMINO TRANSFERASE 26 U/L (10-37); BILIRUBIN,TOTAL 0.5 MG/DL (0.1-1.0); BLOOD UREA NITROGEN 23 MG/DL (7-18); BUN/CREATININE RATIO 19.7 (5.4-32.0); CALCIUM 9.1 MG/DL (8.5-10.1); CHLORIDE 102 MMOL/L (99-107); CREATININE 1.17 MG/DL (0.60-1.10); GLUCOSE 107 MG/DL (70-104); POTASSIUM 4.7 MMOL/L (3.5-5.1); SODIUM 142 MMOL/L (135-145); TOTAL CARBON DIOXIDE 28.3 MMOL/L (24-32); TOTAL PROTEIN 7.4 G/DL (6.4-8.2); eGFR 60 ML/MIN
[2022-05-21 17:41] LABS: MAGNESIUM 2.3 MG/DL (1.5-2.4)
[2022-05-21] MEDS ORDERED: OXYC5CAP19 PO (18:33)
== END 2022-05-21 19:46 | disposition home or self-care (01) ==
LOC: ER 13:36
DX: S22.41XA Multiple fractures of ribs, right side, initial encounter for closed fracture (principal); S20.219A Contusion of unspecified front wall of thorax, initial encounter; R07.81 Pleurodynia; E78.00 Pure hypercholesterolemia, unspecified; I10 Essential (primary) hypertension; J45.909 Unspecified asthma, uncomplicated; Z95.0 Presence of cardiac pacemaker; Z98.890 Other specified postprocedural states; Z72.89 Other problems related to lifestyle; Z88.1 Allergy status to other antibiotic agents; Z79.899 Other long term (current) drug therapy; X58.XXXA Exposure to other specified factors, initial encounter; Y93.89 Activity, other specified; Y92.89 Other specified places as the place of occurrence of the external cause; Y99.8 Other external cause status
CPT/HCPCS: 36415; 71046; 71250; 74177; 80053; 83735; 84484; 85025; 93005; 96372; 99285; J1885; J3490; Q9967